=== PATIENT | male | born 1970 | race African-American/Black ===

== ENCOUNTER → 2019-07-22 | Outpatient (CLI) | payer OTHER ==
[~2019-07-22] MED LIST: AMOXICILLIN500 MG PO; FLAGYL500 MG PO; MOTRIN800 MG PO; SEPTRA DS 800 M1 TAB PO; TRAMADOL HCL50 MG PO; TRIMOX500 MG PO; VIBRA-TAB100 MG PO; ZOFRAN4 MG PO
[2019-07-22 10:56] LABS: BASO % 0.3 % (0.0-1.0); EOS # 0.1 10*3/uL (0.0-0.4); EOS % 1.8 % (1.0-4.0); HEMATOCRIT 46.8 % (42.0-52.0); HEMOGLOBIN 15.1 g/dl (14.0-18.0); LYMPH # 2.6 10*3/uL (1.3-4.4); LYMPH % 39.6 % (27.0-41.0); MEAN CELL VOLUME 93.4 fl (80.0-94.0); MEAN CORPUSCULAR HGB 30.1 pg (27.0-31.0); MEAN CORPUSCULAR HGB CONC 32.3 g/dl (33.0-37.0); MEAN PLATELET VOLUME 9.4 fl (9.6-12.3); MONO # 0.5 10*3/uL (0.1-1.0); MONO % 8.1 % (3.0-9.0); NEUT # 3.2 10*3/uL (2.3-7.9); NEUT % 49.9 % (47.0-73.0); PLATELET COUNT AUTOMATED 229 10*3/uL (130-400); RED BLOOD COUNT 5.01 10*6/uL (4.50-5.90); RED CELL DISTRI WIDTH 13.2 % (0-14.5); RETICULOCYTE % 0.86 % (0.50-2.50); WHITE BLOOD COUNT 6.5 10*3/uL (4.8-10.8)
[2019-07-22 11:02] LABS: BILIRUBIN NEGATIVE (NEGATIVE); BLOOD NEGATIVE (NEGATIVE); CLARITY CLEAR (CLEAR); COLOR YELLOW (YELLOW); GLUCOSE NEGATIVE (NEGATIVE); KETONE NEGATIVE (NEGATIVE); LEUKO ESTERASE NEGATIVE (NEGATIVE); NITRITE NEGATIVE (NEGATIVE); SPECIFIC GRAVITY 1.015 (1.005-1.030); UROBILINOGEN 0.2 E.U./dl (0.2-1.0)
[2019-07-22 11:12] LABS: ALBUMIN 3.5 gm/dl (3.1-4.5); ALKALINE PHOSPHATASE 82 U/L (45-117); BUN 14 mg/dl (7-24); CHLORIDE 108 mmol/L (98-107); CHOLESTEROL 170 mg/dL (<200); CREATININE 1.23 mg/dL (0.70-1.30); GAMMA GLUTAMYL TRANSPEPTIDASE 18 U/L (15-85); HDL CHOLESTEROL 39 mg/dl (40-60); IRON 56 ug/dL (65-175); LDL CHOLESTEROL 114 mg/dL (9-159); LIPASE 146 U/L (73-393); POTASSIUM 3.9 mmol/L (3.5-5.1); SGOT/AST 13 IU/L (3-35); SGPT/ALT 27 U/L (12-78); SODIUM 141 mmol/L (136-145); TOTAL IRON BINDING CAPACITY 292 ug/dl (250-450); TOTAL PROTEIN 7.2 gm/dL (6.4-8.2); TRIGLYCERIDES 85 mg/dl (<150); VLDL CHOLESTEROL 17 mg/dL (6-40)
[2019-07-22 11:13] LABS: EPITHELIAL CELLS 0-2
[2019-07-22 11:14] LABS: MUCOUS 2+
[2019-07-22 11:18] LABS: THYROID STIM HORMONE (HS) 0.981 uIU/ml (0.358-4.75)
[2019-07-22 12:05] LABS: FERRITIN 143.9 ng/mL (22.0-322.0); VITAMIN D, 25-HYDROXY 14.4 ng/mL (30-100)
[2019-07-23 08:11] LABS: H PYLORI IGG AB 162289 0.15 (0.00-0.79)
[2019-07-24 12:06] LABS: H.PYLORI IGM <9.0 units (0.0-8.9); H.PYLORI IgA 163170 <9.0 units (0.0-8.9)
== END | disposition home or self-care (01) ==
LOC: LAB 10:19
PROVIDERS: Family Medicine
DX: E55.9 Vitamin D deficiency, unspecified (principal); E78.5 Hyperlipidemia, unspecified; R79.89 Other specified abnormal findings of blood chemistry; R53.83 Other fatigue

== ENCOUNTER 2021-08-15 11:42 | Emergency (ER) | payer OTHER ==
[2021-08-15 11:47] VITALS: BP 134/78
[2021-08-15] MEDS ORDERED: AMOXICILLIN500 M2 PO (13:50)
== END 2021-08-15 14:07 | disposition home or self-care (01) ==
LOC: ED 11:42
DX: J02.9 Acute pharyngitis, unspecified (principal); Z20.822 Contact with and (suspected) exposure to COVID-19; R05.9 Cough, unspecified